=== PATIENT | female | born 1930 | race Caucasian/White ===

== ENCOUNTER 2017-08-09 00:02 | Inpatient (IN) | payer MEDICARE ==
[~2017-08-09] VITALS: Ht 154.9 cm; Wt 82.1 kg
[2017-08-09 00:50] LABS: EOSINOPHILS % (AUTO) 0.6 % (0.0-8.0); MONOCYTES % (AUTO) 6.4 % (3.0-13.0); NEUTROPHILS % (AUTO) 79.4 % (40.0-77.0)
[2017-08-09 00:57] LABS: RAPID GROUP A STREP NEGATIVE (NEGATIVE)
[2017-08-09 00:59] LABS: BASOPHILS % (AUTO) 0.4 % (0.0-5.0); HEMATOCRIT 37.9 % (36-48); LYMPHOCYTES % (AUTO) 13.2 % (21.0-51.0); MEAN CORPUSCULAR HEMOGLOBIN 32.7 pg (27.0-33.0); MEAN CORPUSCULAR VOLUME 93.5 fL (79-99); PLATELET COUNT (AUTO) 177 K/uL (130-400); RED BLOOD CELL COUNT(AUTO) 4.06 MIL/uL (4.00-5.50); RED CELL DISTRIBUTION WIDTH 13.1 % (11.0-15.5); WHITE BLOOD COUNT (AUTO) 5.5 K/uL (4.8-10.8)
[2017-08-09 01:17] LABS: POTASSIUM 3.7 mmol/L (3.5-5.1)
[2017-08-09 01:22] LABS: ALBUMIN 3.1 g/dL (3.5-5.0); BILIRUBIN,TOTAL 0.5 mg/dL (0.2-1.0); TOTAL PROTEIN, SERUM 7.3 g/dL (6.0-8.3)
[2017-08-09] MEDS ORDERED: BENZONATATE 100 MG CAPSULE PO ONE (01:59)
[2017-08-09 02:10] LABS: APPEARANCE,URINE Clear (CLEAR); BILIRUBIN,URINE Negative (NEGATIVE); COLOR,URINE Yellow (YELLOW); GLUCOSE, URINE (UA) Negative (NEGATIVE); KETONES,URINE Negative (NEGATIVE); LEUKOCYTE ESTERASE ,URINE Trace (NEGATIVE); NITRATE,URINE Negative (NEGATIVE); OCCULT BLOOD,URINE Large (NEGATIVE); PH,URINE 5.5 (5.0-8.0); PROTEIN,URINE 300 (NEGATIVE)
[2017-08-09] MEDS ORDERED: IPRATROPIUM/ALBUTEROL SULFATE 3 ML SOLUTION IH ONE (02:13)
[2017-08-09 02:25] LABS: BACTERIA,URINE None Seen /HPF (None Seen); SQUAMOUS EPITHELIAL CELL,UR Few /LPF (0-2); WBC,URINE 0-1 /HPF (0-1); YEAST,URINE BUDDING Rare /HPF (None Seen)
[2017-08-09] MEDS ORDERED: POTASSIUM CHLORIDE 10% ELIXIR 20 MEQ/15 ML UDCUP PO PRN (02:45)
[2017-08-09] MEDS ORDERED: NITROGLYCERIN 0.4 MG SL TAB SL PRN (02:45)
[2017-08-09] MEDS ORDERED: ONDANSETRON HCL 4 MG/2 ML VIAL IV PRN (02:45)
[2017-08-09] MEDS ORDERED: POTASSIUM CHLORIDE 20MEQ/100ML 100 ML IV PRN (02:45)
[2017-08-09] MEDS: DOXYCYCLINE 100MG+NS 250ML 250 ML IV SCH ×2 (02:45→14:40)
[2017-08-09] MEDS ORDERED: HYDRALAZINE HCL 20 MG/ML VIAL IV PRN (02:45)
[2017-08-09] MEDS ORDERED: POTASSIUM CHLORIDE 20 MEQ ERTAB PO PRN (02:45)
[2017-08-09] MEDS ORDERED: LIDOCAINE HCL-MPF 1% 2ML VIAL IVP PRN (02:45)
[2017-08-09] MEDS: METHYLPREDNISOLONE SOD SUCC 125MG/2ML VIAL IV SCH (02:45)
[2017-08-09] MEDS ORDERED: ACETAMINOPHEN 325 MG TAB PO PRN ×2 (02:45)
[2017-08-09] MEDS ORDERED: DOXYCYCLINE 100MG+NS 250ML 250 ML IV ONE (04:11)
[2017-08-09] MEDS ORDERED: METHYLPREDNISOLONE SOD SUCC 125MG/2ML VIAL ONE (04:12)
[2017-08-09] MEDS ORDERED: ACETAMINOPHEN 325 MG TAB ONE (04:22)
[2017-08-09] MEDS: IPRATROPIUM/ALBUTEROL SULFATE 3 ML SOLUTION IH SCH ×4 (06:00→23:58)
[2017-08-09 08:39] VITALS: BP 153/59
[2017-08-09] MEDS: METHYLPREDNISOLONE SOD SUCC 125MG/2ML VIAL IVP SCH ×2 (09:14→17:22)
[2017-08-09] MEDS: BENZONATATE 100 MG CAPSULE PO SCH ×3 (09:14→20:27)
[2017-08-09] MEDS: OSELTAMIVIR PHOSPHATE 75 MG CAP PO SCH ×2 (09:14→20:27)
[2017-08-09] MEDS: FAMOTIDINE 20MG TAB 20 MG TAB PO SCH ×2 (09:14→20:27)
[2017-08-09 11:52] VITALS: BP 141/63
[2017-08-09 16:00] VITALS: BP 146/65
[2017-08-09] MEDS ORDERED: ZINC50TA64 PO (18:13)
[2017-08-09] MEDS ORDERED: AMLO5TAB2 PO (18:13)
[2017-08-09] MEDS ORDERED: LISI40TA4 PO (18:13)
[2017-08-09] MEDS ORDERED: VIT1CAPS28 PO (18:13)
[2017-08-09] MEDS ORDERED: ACET-2247 PO (18:13)
[2017-08-09] MEDS ORDERED: PYRI100T2 PO (18:13)
[2017-08-09] MEDS ORDERED: CHOL100018 PO (18:13)
[2017-08-09] MEDS ORDERED: DIPH25 PO (18:13)
[2017-08-09] MEDS ORDERED: OMEP20TA25 PO (18:13)
[2017-08-09] MEDS ORDERED: TEMA15CA PO (18:13)
[2017-08-09] MEDS ORDERED: CALC-261 PO (18:13)
[2017-08-09] MEDS ORDERED: CYAN500L3 SL (18:13)
[2017-08-09] MEDS ORDERED: ESTR10TA VG (18:13)
[2017-08-09] MEDS ORDERED: FLAX10002 PO (18:13)
[2017-08-09] MEDS ORDERED: DARI7.5T PO (18:13)
[2017-08-09] MEDS ORDERED: PREG50 PO (18:13)
[2017-08-09] MEDS ORDERED: CRAN450C PO (18:13)
[2017-08-09] MEDS ORDERED: FEXO1TAB5 PO (18:13)
[2017-08-09] MEDS ORDERED: FLUT16H NASAL (18:13)
[2017-08-09 19:37] VITALS: BP 157/72
[2017-08-09 23:27] VITALS: BP 154/64
[2017-08-10] MEDS: METHYLPREDNISOLONE SOD SUCC 125MG/2ML VIAL IV SCH (01:53)
[2017-08-10] MEDS: METHYLPREDNISOLONE SOD SUCC 125MG/2ML VIAL IVP SCH (02:26)
[2017-08-10] MEDS: DOXYCYCLINE 100MG+NS 250ML 250 ML IV SCH ×2 (02:26→14:41)
[2017-08-10] MEDS: GUAIFENESIN-DM 200/20 MG 10 ML PO PRN (02:35)
[2017-08-10 04:49] VITALS: BP 153/64
[2017-08-10] MEDS: IPRATROPIUM/ALBUTEROL SULFATE 3 ML SOLUTION IH SCH (05:08)
[2017-08-10 07:57] VITALS: BP 158/75
[2017-08-10] MEDS: FAMOTIDINE 20MG TAB 20 MG TAB PO SCH ×2 (09:55→22:03)
[2017-08-10] MEDS: OSELTAMIVIR PHOSPHATE 75 MG CAP PO SCH ×2 (09:55→22:03)
[2017-08-10] MEDS: ENOXAPARIN SODIUM 40 MG/0.4 ML SYRINGE SQ SCH (09:56)
[2017-08-10] MEDS ORDERED: ARTIFICAL TEARS SOL 15 ML OD PRN (10:00)
[2017-08-10] MEDS: BENZONATATE 100 MG CAPSULE PO SCH ×3 (10:02→22:03)
[2017-08-10] MEDS ORDERED: MAGNESIUM HYDROXIDE 30 ML/UDCUP PO PRN (10:15)
[2017-08-10] MEDS: POLYETHYLENE GLYCOL 3350 17 GM POWD.PACK PO SCH (10:39)
[2017-08-10] MEDS: IPRATROPIUM 0.5 MG/2.5 ML INH IH SCH ×3 (11:08→23:06)
[2017-08-10 11:44] VITALS: BP 160/61
[2017-08-10 15:34] VITALS: BP 154/54
[2017-08-10 20:15] VITALS: BP 149/83
[2017-08-10] MEDS: METHYLPREDNISOLONE SOD SUCC 40MG/ML 1ML IVP SCH (22:03)
[2017-08-10] MEDS: TEMAZEPAM 7.5 MG CAPSULE PO PRN (22:03)
[2017-08-11 00:21] VITALS: BP 141/66
[2017-08-11] MEDS: DOXYCYCLINE 100MG+NS 250ML 250 ML IV SCH ×2 (03:01→13:38)
[2017-08-11 03:20] VITALS: BP 152/76
[2017-08-11 05:52] LABS: CREATININE 1.2 mg/dL (0.5-1.5); POTASSIUM 3.8 mmol/L (3.5-5.1)
[2017-08-11] MEDS: IPRATROPIUM 0.5 MG/2.5 ML INH IH SCH ×4 (06:56→23:41)
[2017-08-11 07:48] VITALS: BP 165/79
[2017-08-11] MEDS: BENZONATATE 100 MG CAPSULE PO SCH ×3 (08:14→21:06)
[2017-08-11] MEDS: OSELTAMIVIR PHOSPHATE 75 MG CAP PO SCH ×2 (08:15→21:06)
[2017-08-11] MEDS: METHYLPREDNISOLONE SOD SUCC 40MG/ML 1ML IVP SCH ×2 (08:15→21:06)
[2017-08-11] MEDS: FAMOTIDINE 20MG TAB 20 MG TAB PO SCH ×2 (08:15→21:06)
[2017-08-11] MEDS: POLYETHYLENE GLYCOL 3350 17 GM POWD.PACK PO SCH (08:15)
[2017-08-11] MEDS: ENOXAPARIN SODIUM 40 MG/0.4 ML SYRINGE SQ SCH (08:16)
[2017-08-11] MEDS ORDERED: TEMAZEPAM 15 MG CAPSULE PO PRN (10:45)
[2017-08-11] MEDS ORDERED: FLUTICASONE PROPIONATE 50MCG/SPRAY 16 GM BOTTLE EN PRN (10:45)
[2017-08-11 11:25] VITALS: BP 148/74
[2017-08-11 16:00] VITALS: BP 160/73
[2017-08-11 20:00] VITALS: BP 146/72
[2017-08-11] MEDS: VITE AC PO SCH (21:00)
[2017-08-11] MEDS: ZNOX PO SCH (21:00)
[2017-08-11] MEDS: LUT PO SCH (21:00)
[2017-08-11] MEDS: VIT C PO SCH (21:00)
[2017-08-11] MEDS: COPPER PO SCH (21:00)
[2017-08-11] MEDS: PREGABALIN 100 MG CAPSULE PO SCH (21:06)
[2017-08-11] MEDS: TEMAZEPAM 7.5 MG CAPSULE PO PRN (21:06)
[2017-08-11] MEDS: GUAIFENESIN-DM 200/20 MG 10 ML PO PRN (21:06)
[2017-08-12] VITALS: BP 157/76
[2017-08-12] MEDS: DOXYCYCLINE 100MG+NS 250ML 250 ML IV SCH (02:01)
[2017-08-12] MEDS: GUAIFENESIN-DM 200/20 MG 10 ML PO PRN (03:06)
[2017-08-12 03:57] VITALS: BP 150/66
[2017-08-12] MEDS: IPRATROPIUM 0.5 MG/2.5 ML INH IH SCH (05:57)
[2017-08-12 08:00] VITALS: BP 158/66
[2017-08-12] MEDS: PREGABALIN 100 MG CAPSULE PO SCH (08:05)
[2017-08-12] MEDS: OSELTAMIVIR PHOSPHATE 75 MG CAP PO SCH (08:05)
[2017-08-12] MEDS: METHYLPREDNISOLONE SOD SUCC 40MG/ML 1ML IVP SCH (08:05)
[2017-08-12] MEDS: FAMOTIDINE 20MG TAB 20 MG TAB PO SCH (08:06)
[2017-08-12] MEDS: ENOXAPARIN SODIUM 40 MG/0.4 ML SYRINGE SQ SCH (08:10)
[2017-08-12] MEDS: POLYETHYLENE GLYCOL 3350 17 GM POWD.PACK PO SCH (08:18)
[2017-08-12] MEDS: BENZONATATE 100 MG CAPSULE PO SCH (08:18)
[2017-08-12] MEDS: ZNOX PO SCH (08:24)
[2017-08-12] MEDS: COPPER PO SCH (08:24)
[2017-08-12] MEDS: LUT PO SCH (08:24)
[2017-08-12] MEDS: VIT C PO SCH (08:24)
[2017-08-12] MEDS: VITE AC PO SCH (08:24)
[2017-08-12] MEDS ORDERED: FLAXSEED OIL 1000 MG PO SCH (09:00)
[2017-08-12] MEDS ORDERED: ZINC AMINO ACID CHELATE PO SCH (09:00)
[2017-08-12] MEDS ORDERED: AMLODIPINE BESYLATE 5 MG TAB PO SCH (09:00)
[2017-08-12] MEDS ORDERED: DARIFENACIN HYDROBROMIDE 7.5 MG PO SCH (09:00)
[2017-08-12] MEDS ORDERED: [UNRECOGNIZED DRUG - OTHER] PO PRN (09:00)
[2017-08-12] MEDS ORDERED: PSEUDOEPHEDRINE PO PRN (09:00)
[2017-08-12] MEDS ORDERED: LISINOPRIL 40 MG TABLET PO SCH (09:00)
[2017-08-12] MEDS ORDERED: FEXOFENADINE PO PRN (09:00)
[2017-08-12] MEDS ORDERED: CALCIUM 500 + VITAMIN D 200 TABLET PO SCH (09:00)
[2017-08-12] MEDS ORDERED: CRANBERRY FRUIT 450 MG PO SCH (09:00)
[2017-08-12] MEDS ORDERED: **HM**Cholecalciferol (Vitamin D3) (Vitamin D3) 1,000 UNIT PO SCH (09:00)
[2017-08-12] MEDS ORDERED: PYRIDOXINE HCL 50 MG TABLET PO SCH (09:00)
[2017-08-12] MEDS ORDERED: CYANOCOBALAMIN (VITAMIN B-12) 1,000 MCG TABLET PO SCH (09:00)
[2017-08-18] MEDS ORDERED: ESTRADIOL VG SCH (09:00)
== END 2017-08-12 12:57 | disposition home or self-care (01) | DRG 203 ==
LOC: EDH 00:02 → EDHIP 02:15 → OBSVTOIN 02:15 → 4CH 08:03
PROVIDERS: ADMIT Internal Medicine; ATTEND Internal Medicine
DX: J20.9 Acute bronchitis, unspecified (principal); G47.00 Insomnia, unspecified; I10 Essential (primary) hypertension; Z82.49 Family history of ischemic heart disease and other diseases of the circulatory system; Z90.710 Acquired absence of both cervix and uterus; Z90.49 Acquired absence of other specified parts of digestive tract; Z88.5 Allergy status to narcotic agent; Z88.0 Allergy status to penicillin; Z88.2 Allergy status to sulfonamides; Z88.8 Allergy status to other drugs, medicaments and biological substances; Z28.21 Immunization not carried out because of patient refusal
CPT/HCPCS: 36415; 71046; 80048; 80053; 81001; 83605; 84484; 85025; 87633; 87804; 87880; 93005; 94640; 94664; J1650; J2920; J2930; J3490

== ENCOUNTER 2021-10-05 03:42 | Inpatient (IN) | payer MEDICARE ==
[~2021-10-05] VITALS: Ht 154.9 cm; Wt 84.4 kg
[~2021-10-05 03:42] MED LIST: ACET-2247 PO; AMLO-257 PO; CALC-261 PO; CHOL100018 PO; CRAN450C PO; CYAN500L3 SL; DARI7.5T PO; DIPH25 PO; ESTR10TA VG; FEXO1TAB5 PO; FLAX10002 PO; FLUT16H NASAL; LISI40TA9 PO; OMEP20TA20 PO; PREG50 PO; PYRI100T10 PO; TEMA15CA PO; VIT1CAPS28 PO; ZINC50TA64 PO
[2021-10-05 04:20] LABS: BASOPHILS % (AUTO) 0.2 % (0.0-5.0); HEMATOCRIT 29.8 % (36-48); LYMPHOCYTES % (AUTO) 10.4 % (21.0-51.0); MEAN CORPUSCULAR HEMOGLOBIN 31.9 pg (27.0-33.0); MEAN CORPUSCULAR HGB CONC 33.2 g/dL (32.0-36.0); MEAN CORPUSCULAR VOLUME 96.1 fL (79-99); MONOCYTES % (AUTO) 7.9 % (3.0-13.0); PLATELET COUNT (AUTO) 140 K/uL (130-400); RED CELL DISTRIBUTION WIDTH 13.5 % (11.0-15.5); WHITE BLOOD COUNT (AUTO) 11.1 K/uL (4.8-10.8)
[2021-10-05 04:30] LABS: CREATININE 3.4 mg/dL (0.5-1.5); POTASSIUM 3.3 mmol/L (3.5-5.1)
[2021-10-05 04:35] LABS: BILIRUBIN,TOTAL 0.5 mg/dL (0.2-1.0); TOTAL PROTEIN, SERUM 6.9 g/dL (6.0-8.3)
[2021-10-05] MEDS ORDERED: PROCHLORPERAZINE 10MG/2ML INJ ONE (04:50)
[2021-10-05] MEDS ORDERED: 0.9%NACL 1000ML 1,000 ML IV ONE ×2 (04:50→05:00)
[2021-10-05] MEDS ORDERED: PROCHLORPERAZINE 10MG/2ML INJ IV ONE (05:00)
[2021-10-05] MEDS ORDERED: ACETAMINOPHEN 325 MG TAB PO PRN ×2 (05:30)
[2021-10-05] MEDS ORDERED: ZOLPIDEM TARTRATE 5 MG TAB PO PRN (05:30)
[2021-10-05 06:58] LABS: APPEARANCE,URINE CLEAR (CLEAR); BILIRUBIN,URINE NEGATIVE (NEGATIVE); COLOR,URINE YELLOW (YELLOW); GLUCOSE, URINE (UA) NEGATIVE (NEGATIVE); KETONES,URINE NEGATIVE (NEGATIVE); LEUKOCYTE ESTERASE ,URINE SMALL (NEGATIVE); NITRATE,URINE NEGATIVE (NEGATIVE); OCCULT BLOOD,URINE SMALL (NEGATIVE); PROTEIN,URINE TRACE mg/dL (NEGATIVE); UROBILINOGEN,URINE 0.2 mg/dL (0.2-1.0)
[2021-10-05 08:00] LABS: BACTERIA,URINE Rare /HPF (None Seen); RBC,URINE 0-1 /HPF (0-1); WBC,URINE 0-1 /HPF (0-1)
[2021-10-05 08:11] LABS: MAGNESIUM 2.1 mg/dL (1.80-2.40); PHOSPHORUS 4.5 mg/dL (2.5-4.9)
[2021-10-05] MEDS: FAMOTIDINE 20MG TAB PO SCH (09:38)
[2021-10-05] MEDS: HEPARIN 5,000 UNIT VIAL SQ SCH ×3 (09:38→20:32)
[2021-10-05 13:30] VITALS: BP 138/70
[2021-10-05] MEDS ORDERED: KCL 20 MEQ ERTAB PO PRN (13:30)
[2021-10-05] MEDS ORDERED: POTASSIUM CHLORIDE 20MEQ/100ML 100 ML IV PRN (13:30)
[2021-10-05] MEDS ORDERED: POTASSIUM CHLORIDE 10% ELIXIR 20 MEQ/15 ML UDCUP PO PRN (13:30)
[2021-10-05] MEDS ORDERED: VIT D3 PO (14:33)
[2021-10-05] MEDS ORDERED: ACET-2743 PO (14:33)
[2021-10-05] MEDS ORDERED: FAMO40TA7 PO (14:33)
[2021-10-05 16:00] VITALS: BP 126/57
[2021-10-05] MEDS: 0.9%NACL 1000ML 1,000 ML IV SCH (20:27)
[2021-10-05 20:50] VITALS: BP 128/52
[2021-10-05 23:46] VITALS: BP 124/49
[2021-10-06 04:03] VITALS: BP 115/49
[2021-10-06 04:19] LABS: BASOPHILS % (AUTO) 0.2 % (0.0-5.0); EOSINOPHILS % (AUTO) 3.1 % (0.0-8.0); HEMATOCRIT 26.7 % (36-48); LYMPHOCYTES % (AUTO) 19.2 % (21.0-51.0); MEAN CORPUSCULAR VOLUME 97.1 fL (79-99); MONOCYTES % (AUTO) 9.1 % (3.0-13.0); NEUTROPHILS % (AUTO) 67.9 % (40.0-77.0); PLATELET COUNT (AUTO) 136 K/uL (130-400); RED BLOOD CELL COUNT(AUTO) 2.75 MIL/uL (4.00-5.50); RED CELL DISTRIBUTION WIDTH 13.7 % (11.0-15.5); WHITE BLOOD COUNT (AUTO) 8.8 K/uL (4.8-10.8)
[2021-10-06 04:45] LABS: CREATININE 2.9 mg/dL (0.5-1.5); POTASSIUM 3.4 mmol/L (3.5-5.1)
[2021-10-06 08:00] VITALS: BP 114/53
[2021-10-06] MEDS: HEPARIN 5,000 UNIT VIAL SQ SCH ×3 (08:25→20:27)
[2021-10-06 12:00] VITALS: BP 120/48
[2021-10-06] MEDS: 0.9%NACL 1000ML 1,000 ML IV SCH (14:58)
[2021-10-06 16:00] VITALS: BP 131/47
[2021-10-06 20:00] VITALS: BP 148/66
[2021-10-07] VITALS: BP 140/58
[2021-10-07 04:00] VITALS: BP 123/48
[2021-10-07 08:13] VITALS: BP 131/56
[2021-10-07 08:19] LABS: MEAN CORPUSCULAR HEMOGLOBIN 31.3 pg (27.0-33.0); MEAN CORPUSCULAR HGB CONC 32.4 g/dL (32.0-36.0); MEAN CORPUSCULAR VOLUME 96.7 fL (79-99); RED CELL DISTRIBUTION WIDTH 13.6 % (11.0-15.5); WHITE BLOOD COUNT (AUTO) 6.9 K/uL (4.8-10.8)
[2021-10-07 08:45] LABS: CREATININE 2.4 mg/dL (0.5-1.5); POTASSIUM 3.9 mmol/L (3.5-5.1)
[2021-10-07] MEDS: FAMOTIDINE 20MG TAB PO SCH (09:37)
[2021-10-07] MEDS: HEPARIN 5,000 UNIT VIAL SQ SCH ×3 (09:38→21:12)
[2021-10-07 11:22] VITALS: BP 144/61
[2021-10-07] MEDS: 0.9%NACL 1000ML 1,000 ML IV SCH (12:21)
[2021-10-07] MEDS ORDERED: PREGABALIN 25 MG CAP ONE (15:29)
[2021-10-07 16:22] VITALS: BP 136/59
[2021-10-07 20:00] VITALS: BP 131/59
[2021-10-07] MEDS: PREGABALIN 25 MG CAP PO SCH (21:18)
[2021-10-08] VITALS: BP 132/55
[2021-10-08 04:00] VITALS: BP 150/62
[2021-10-08 05:19] LABS: HEMATOCRIT 26.2 % (36-48); MEAN CORPUSCULAR HEMOGLOBIN 31.7 pg (27.0-33.0); MEAN CORPUSCULAR HGB CONC 32.8 g/dL (32.0-36.0); MEAN CORPUSCULAR VOLUME 96.7 fL (79-99); RED BLOOD CELL COUNT(AUTO) 2.71 MIL/uL (4.00-5.50); RED CELL DISTRIBUTION WIDTH 13.4 % (11.0-15.5); WHITE BLOOD COUNT (AUTO) 6.3 K/uL (4.8-10.8)
[2021-10-08 05:33] LABS: CREATININE 2.2 mg/dL (0.5-1.5)
[2021-10-08 08:00] VITALS: BP 136/65
[2021-10-08] MEDS: 0.9%NACL 1000ML 1,000 ML IV SCH (08:54)
[2021-10-08] MEDS: PREGABALIN 25 MG CAP PO SCH (08:55)
[2021-10-08] MEDS: HEPARIN 5,000 UNIT VIAL SQ SCH (08:56)
[2021-10-08] MEDS ORDERED: AMLODIPINE 5 MG TAB PO SCH (09:00)
[2021-10-08 12:00] VITALS: BP 133/56
[2021-10-08] MEDS ORDERED: FAMO20TA8 PO (12:24)
== END 2021-10-08 14:35 | disposition home or self-care (01) | DRG 684 ==
LOC: EDH 03:42 → EDHIP 05:21 → 4BH 13:18
PROVIDERS: ADMIT Internal Medicine; ATTEND Internal Medicine
DX: N17.9 Acute kidney failure, unspecified (principal); E78.5 Hyperlipidemia, unspecified; N18.4 Chronic kidney disease, stage 4 (severe); I12.9 Hypertensive chronic kidney disease with stage 1 through stage 4 chronic kidney disease, or unspecified chronic kidney disease; Z96.653 Presence of artificial knee joint, bilateral; D64.9 Anemia, unspecified; M79.7 Fibromyalgia; G47.30 Sleep apnea, unspecified; E87.6 Hypokalemia; S41.111A Laceration without foreign body of right upper arm, initial encounter; W18.39XA Other fall on same level, initial encounter; Z90.710 Acquired absence of both cervix and uterus; Z90.49 Acquired absence of other specified parts of digestive tract; Z87.891 Personal history of nicotine dependence; Z88.0 Allergy status to penicillin; Z88.8 Allergy status to other drugs, medicaments and biological substances; Z88.1 Allergy status to other antibiotic agents; Z88.5 Allergy status to narcotic agent; Y93.89 Activity, other specified; Y92.89 Other specified places as the place of occurrence of the external cause; Y99.8 Other external cause status; Z83.3 Family history of diabetes mellitus
CPT/HCPCS: 36415; 70450; 71045; 74176; 80048; 80053; 81001; 83735; 84100; 84484; 85025; 85027; 87040; 93005; 93880; 93971; G0378; J0780; J1644; J7030